=== PATIENT | female | born 1975 | race African-American/Black ===

== ENCOUNTER → 2016-06-21 | Outpatient (CLI) | payer OTHER | LOC: RAD 02:53 | DX: Z12.31 Encounter for screening mammogram for malignant neoplasm of breast (principal) ==

== ENCOUNTER → 2016-07-04 | Outpatient (CLI) | payer OTHER | LOC: RAD 10:50 | DX: R92.0 Mammographic microcalcification found on diagnostic imaging of breast (principal) ==

== ENCOUNTER → 2017-02-07 | Outpatient (CLI) | payer OTHER | LOC: RAD 02-06 01:14 | DX: N63.10 Unspecified lump in the right breast, unspecified quadrant (principal); R92.1 Mammographic calcification found on diagnostic imaging of breast ==

== ENCOUNTER → 2017-12-10 | Outpatient (CLI) | payer OTHER | LOC: ULTRA 09:13 | DX: M54.2 Cervicalgia (principal); M79.9 Soft tissue disorder, unspecified; R22.1 Localized swelling, mass and lump, neck ==

== ENCOUNTER → 2018-03-13 | Outpatient (CLI) | payer OTHER | LOC: RAD 15:07 | DX: Z12.31 Encounter for screening mammogram for malignant neoplasm of breast (principal) ==